=== PATIENT | male | born 1965 | race Caucasian/White ===

== ENCOUNTER 2021-07-27 11:17 | Emergency (ER) | payer BC ==
[~2021-07-27] VITALS: Ht 182.9 cm; Wt 92.8 kg
[2021-07-27 11:30] VITALS: BP 179/107
[2021-07-27] MEDS ORDERED: LIDOCAINE 2% Multi-Dose 20 ML VIAL. IJ ONE (12:00)
--- NOTE | 2021-07-27 12:07 | PHYS DOC ---
Past Medical History Past Medical History: High Cholesterol, Hypertension Past Surgical History: Other Additional Past Surgical Histo: back surgery Alcohol Use: Occasionally General Adult EDM: Chief Complaint: LACERATION/AVULSION HPI: HPI: Patient is a 56 year old male who presents with laceration and pain to his left lower extremity. Patient states he was on the tailgate of his truck, when he lost his footing and hit his left kulkarni on the cable that holds the tailgate to the truck approximately 1 hour ago. He reports the majority of his body weight fell onto the mid kulkarni. He states that after it happened, he drank a beer and contemplated cleaning it with his first-aid kit. Due to the fact that the truck was dirty, he decided to come to the emergency department for evaluation. Patient does not remember the last time he had a tetanus vaccination. Patient reports he took both his high cholesterol and high blood pressure medications this morning, but he is under a lot of stress, as his has open heart surgery tomorrow. Patient has no other complaints at this time Review of Systems: Review of Systems: ROS negative except as mentioned in HPI. Heart Score: C/O Chest Pain: No Current Medications: Current Medications Medications (Trade) Dose Ordered Sig/Brett Start Time Stop Time Status Last Admin Dose Admin Lidocaine HCl (Lidocaine 2% 20ml Vial) 20 ml 1X ONCE 07/27/21 12:00 07/27/21 12:01 UNV Allergies: Allergies: Allergies Coded Allergies Type Severity Reaction Last Updated Verified No Known Drug Allergies 07/27/21 No Physical Exam: PE: Constitutional: Well developed, well nourished, no acute distress, non-toxic appearance. Neck: Normal range of motion, no tenderness, supple, no stridor. Cardiovascular:Heart rate regular rhythm, no murmur. Lungs & Thorax: Bilateral breath sounds clear to auscultation. Skin: Laceration and abrasion as noted below. Skin otherwise warm, dry, no eryt katherine. Back: No tenderness, no CVA tenderness. Extremities: Left lower extremity has a 3-1/2 x 3 cm laceration to the anterior mid kulkarni with swelling proximally. Additionally, there is an abrasion to the lateral knee with tenderness. Range of motion of left lower extremity is intact in all joints. Extremities are otherwise with no tenderness, no cyanosis, no clubbing, ROM intact, no edema. Neurovascular intact in extremities x4. Neurologic: Alert and oriented x3, normal motor function, normal sensory function, no focal deficits noted. Current Patient Data: Vital Signs: Vital Signs Date Time Temp Pulse Resp B/P (MAP) Pulse Ox O2 Delivery O2 Flow Rate FiO2 07/27/21 11:30 98.3 53 16 179/107 (131) 96 Room Air 98.3 Radiology/Procedures: Radiology/Procedures: PROCEDURE: TIBIA FIBULA LEFT XR LT TIBIA + FIBULA 07/27/2021 11:58 AM INDICATION: Pain status post fall COMPARISON: None available. TECHNIQUE: 4 views of the left tibia and fibula are provided. FINDINGS/ IMPRESSION: Suspect a soft tissue laceration anteriorly along the mid shaft of the tibia. There is no acute fracture or dislocation. Joint spaces are maintained. Bone mineralization is within normal limits. There is no soft tissue gas or osseous erosion. No radiopaque foreign body. Electronically signed by: Raquel Lao MD (07/27/2021 12:22 PM) [facility] Course & Med Decision Making: Course & Med Decision Making Pertinent Labs and Imaging studies reviewed. (See chart for details) Patient does not believe there are any retained foreign bodies in the wound however x-ray will be obtained to rule out fracture and retained foreign body within the wound. Tetanus was updated in the department. Laceration repair was tolerated well and proceeded without complication. Dragon Disclaimer: Dragon Disclaimer: This electronic medical record was generated, in whole or in part, using a voice recognition dictation system. Laceration Repair Lac Repair Indication: Laceration to left lower extremity Procedure: The patient was placed in the appropriate position and anesthesia around the was 7 mL 2% lidocaine plain. The area was then cleansed with normal saline followed by Betadine solution. The laceration was closed with 11 simple interrupted 4-0 nylon sutures. The wound area was then dressed with Xeroform and gauze. Total repaired wound length: Andrea centimeters. Other Items: The patient tolerated the procedure very well. Complications: No complications. Departure Departure Impression: Primary Impression: Laceration of left lower leg Qualified Codes: S81.812A - Laceration without foreign body, left lower leg, initial encounter Additional Impression: Contusion of left knee Qualified Codes: S80.02XA - Contusion of left knee, initial encounter Disposition: 01 HOME / SELF CARE / HOMELESS Condition: STABLE Patient Instructions: Sutured Wound Care, [id number] Additional Instructions: Today and tomorrow, please walk as little as possible and avoid prolonged standing. When at rest, keep the leg elevated, for example with extra pillows so that the wound is above the level of your hips. Keep the wound clean and dry, avoid soaking for period of time longer than 2 minutes. Please return to the emergency department if you have increased pain, redness and warmth around the wound, develop a fever, or have foul-smelling or purulent discharge from the wound. If you are concerned that your wound is not healing well, you may call [phone] and make an appointment with [facility] wound care clinic. RAVI MIXON Jul 27, 2021 12:07
[2021-07-27] MEDS ORDERED: DIPH,PERTUSS(ACELL),TET VAC/PF 0.5 ML SYRINGE. VAX IM ONE (12:15)
--- NOTE | 2021-07-27 12:25 | RAD ---
XR LT TIBIA + FIBULA 07/27/2021 11:58 AM INDICATION: Pain status post fall COMPARISON: None available. TECHNIQUE: 4 views of the left tibia and fibula are provided. FINDINGS/ IMPRESSION: Suspect a soft tissue laceration anteriorly along the mid shaft of the tibia. There is no acute fract ure or dislocation. Joint spaces are maintained. Bone mineralization is within normal limits. There i s no soft tissue gas or osseous erosion. No radiopaque foreign body. Electronically signed by: Raquel Lao MD (07/27/2021 12:22 PM) [email or web address]
== END 2021-07-27 13:28 | disposition home or self-care (01) ==
LOC: ER 11:17
DX: S81.812A Laceration without foreign body, left lower leg, initial encounter (principal); S80.02XA Contusion of left knee, initial encounter; E78.00 Pure hypercholesterolemia, unspecified; I10 Essential (primary) hypertension; W22.8XXA Striking against or struck by other objects, initial encounter; Y93.89 Activity, other specified; Y92.89 Other specified places as the place of occurrence of the external cause; Y99.8 Other external cause status
CPT/HCPCS: 12002; 73590; 90471; 90715; 99283